=== PATIENT | male | born 1985 | race Asian ===

== ENCOUNTER 2022-05-29 14:18 | Emergency (ER) | payer BC ==
[~2022-05-29] VITALS: Ht 165.1 cm; Wt 86.2 kg
[2022-05-29] MEDS ORDERED: FAMOTIDINE 20 MG TABLET PO ONE (14:30)
[2022-05-29] MEDS ORDERED: diphenhydrAMINE 25 MG CAP PO ONE (14:30)
--- NOTE | 2022-05-29 14:30 | NUR ---
Blood glucose 136. per paramedics.
[2022-05-29] MEDS ORDERED: FAMOTIDINE. 20 MG/2 ML VIAL IV ONE ×2 (14:34→14:45)
[2022-05-29] MEDS ORDERED: diphenhydrAMINE 50 MG/1 ML VIAL ONE (14:34)
[2022-05-29] MEDS ORDERED: diphenhydrAMINE 50 MG/1 ML VIAL IV ONE (14:45)
[2022-05-29 14:57] LABS: MEAN CORPUSCULAR HEMOGLOBIN 33.3 uug (23.8-33.4); MEAN CORPUSCULAR VOLUME 98.6 fL (73.0-96.2); PLATELET COUNT (AUTO) 210 K/uL (152-348)
--- NOTE | 2022-05-29 15:02 | NUR ---
Pt states felt better after receiving Bendryl.
[2022-05-29 15:10] LABS: BILIRUBIN,DIRECT 0.1 mg/dL (0.0-0.2); BILIRUBIN,TOTAL 0.3 mg/dL (0.2-1.0); CREATININE 0.9 mg/dL (0.6-1.3); POTASSIUM 3.9 mmol/L (3.5-5.1); TOTAL PROTEIN, SERUM 6.9 g/dL (6.4-8.2)
[2022-05-29] MEDS ORDERED: IV NORMAL SALINE 250 ML IV ONE (15:23)
[2022-05-29] MEDS ORDERED: IOHEXOL 300MG/ML 100 ML INFUS..BTL ONE (15:23)
[2022-05-29] MEDS ORDERED: SWABABLE VALVE TRANSFER SET EA MC ONE (15:23)
[2022-05-29] MEDS ORDERED: DEXAMETHASONE 4 MG TABLET PO ONE (16:30)
[2022-05-29] MEDS ORDERED: EPIN0.3P3 IM (16:32)
[2022-05-29] MEDS ORDERED: DEXAMETHASONE 4 MG TABLET ONE (16:40)
[2022-05-29 16:52] VITALS: BP 116/80
== END 2022-05-29 16:45 | disposition home or self-care (01) ==
LOC: ER 14:18 → EDBD 14:18 → ER 16:45
DX: T78.40XA Allergy, unspecified, initial encounter (principal); R49.0 Dysphonia; J02.9 Acute pharyngitis, unspecified; X58.XXXA Exposure to other specified factors, initial encounter; G93.0 Cerebral cysts
CPT/HCPCS: 99285; 96374; 70491; 96375; 80076; 80048; 85025; 36415; J8540; J1200; J3490; Q9967; A4663